=== PATIENT | male | born 1985 | race Caucasian/White ===

== ENCOUNTER 2018-07-04 17:10 | Emergency (ER) | payer OTHER ==
[2018-07-04] MEDS ORDERED: Ketorolac 60 MG/2 ML SDV IM ONE (18:02)
[2018-07-04] MEDS ORDERED: Acetaminophen/HYDROcodone 325-5 MG Tab PO ONE (18:02)
--- NOTE | 2018-07-04 18:08 | EDM.PDOC ---
ED HPI GENERAL MEDICAL PROBLEM - General Chief Complaint: Lower Extremity Injury/Pain Stated Complaint: LEFT TOE INJURY Time Seen by Provider: 07/04/18 17:48 Source of Information: Reports: Patient History Limitations: Reports: No Limitations - History of Present Illness INITIAL COMMENTS - FREE TEXT/NARRATIVE: Patient is a 32-year-old male presents ED complaining of left great toe pain. 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 Since then he's been developing increasing pain with swelling to the toe. He is able to weight- bear with a limp present. Estimates the table weighed approximately a couple 100 pounds. Left Feet Pain Score (Numeric/FACES): 6 - Related Data Allergies Allergy/AdvReac Type Severity Reaction Status Date / Time No Known Allergies Allergy Verified 07/04/18 17:41 Home Meds: Home Meds . [No Known Home Meds] 07/04/18 [History] Past Medical History - Past Health History Medical/Surgical History: Denies Medical/Surgical History Social & Family History - Tobacco Use Smoking Status *Q: Current Every Day Smoker Years of Tobacco use: 16 Packs/Tins Daily: 1 - Caffeine Use Caffeine Use: Reports: Coffee, Energy Drinks, Soda, Tea - Recreational Drug Use Recreational Drug Use: Yes Drug Use in Last 12 Months: Yes Recreational Drug Type: Reports: Marijuana/Hashish Recreational Drug Use Frequency: Weekly Review of Systems - Review of Systems Review Of Systems: ROS reveals no pertinent complaints other than HPI. ED EXAM, GENERAL - Physical Exam Exam: See Below Exam Limited By: No Limitations General Appearance: Alert, WD/WN, Mild Distress Ears: Hearing Grossly Normal Nose: Normal Inspection Throat/Mouth: Normal Voice, No Airway Compromise Neck: Normal Inspection, Supple Respiratory/Chest: No Respiratory Distress, No Accessory Muscle Use Cardiovascular: Normal Peripheral Pulses, Regular Rate, Rhythm Peripheral Pulses: 2+: Radial (R), Popliteal (L) Extremities: Other (Left great toe: Hematoma underneath the nail bed with a portion of the skin along the cuticle pulled away. With gentle pressure on the toenail there is increasing pain noted. It is slightly move with pressure. Proper anatomical position noted.) Neurological: Alert, Oriented, CN II-XII Intact, Normal Cognition, No Motor/ Sensory Deficits Psychiatric: Normal Affect, Normal Mood Skin Exam: Warm, Dry, Intact, Normal Color Course - Vital Signs Last Recorded V/S: Last Vital Signs Temp 98.2 F 07/04/18 17:33 Pulse 83 07/04/18 17:33 Resp 18 07/04/18 17:33 BP 152/87 H 07/04/18 17:33 Pulse Ox 99 07/04/18 17:33 - Orders/Labs/Meds Orders: Active Orders 24 hr Category Date Time Status Toes Great Toe Lt TA [CR] Stat Exams 07/04/18 18:03 Taken Meds: Medications Discontinued Medications Generic Name Dose Route Start Last Admin Trade Name Cyril PRN Reason Stop Dose Admin Hydrocodone Bitart/Acetaminophen 1 tab 07/04/18 18:02 07/04/18 18:20 Sherman 325-5 Mg PO 07/04/18 18:03 1 tab ONETIME ONE Administration Ketorolac Tromethamine 60 mg 07/04/18 18:02 07/04/18 18:21 Toradol IM 07/04/18 18:03 60 mg ONETIME ONE Administration - Re-Assessments/Exams Free Text/Narrative Re-Assessment/Exam: Ordered toradol 60 mg im plus norco 5-325mg po x1. Xray of the great toe ordered. 07/04/18 19:30 X-ray of the left great toe reviewed with Dr. Rodas with no acute fractures noted. Dressing applied per nursing staff. Patient discharged home with instructions as documented. Departure - Departure Time of Disposition: 19:31 Disposition: Home, Self-Care 01 Condition: Good Clinical Impression: Subungual hematoma, "Subungual hematoma, foot " Crush injury, toe Qualifiers: Encounter type: initial encounter Laterality: left Qualified Code(s): S97.102A - Crushing injury of unspecified left toe(s), initial encounter - Discharge Information Instructions: Subungual Hematoma, Contusion, [id number], Nail Bed Injury Referrals: PCP,None [Primary Care Provider] - Forms: ED Department Discharge, ED Return to Work/School Form Additional Instructions: No fracture noted on the x-rays of the left great toe. Apply ice to affected area 3 times a day, 30 minutes in duration, do not apply ice directly on the skin. Utilize Tylenol and ibuprofen in alternating fashion for pain. Refrain from any activities that cause worsening pain. Keep area clean and dry. Suggest no soaking of the left toe due to the wound to the base of the nail. Cleanse twice daily with soap and water, reapply Triple Antibiotic ointment. Return to ED if you develop any new or worsening symptoms. - My Orders Last 24 Hours: My Active Orders 07/04/18 18:03 Toes Great Toe Lt TA [CR] Stat - Assessment/Plan Last 24 Hours: My Active Orders 07/04/18 18:03 Toes Great Toe Lt TA [CR] Stat
--- NOTE | 2018-07-07 09:14 | CR ---
Left first toe: Three views of the left first toe were obtained. Comparison: No prior first toe exam. No fracture or other abnormality is appreciated. Impression: 1. No discrete bony abnormality is seen on left first toe study. Diagnostic code #1
== END 2018-07-04 19:50 | disposition home or self-care (01) ==
LOC: JD.ED 17:10
DX: S97.112A Crushing injury of left great toe, initial encounter (principal); F17.210 Nicotine dependence, cigarettes, uncomplicated; W20.8XXA Other cause of strike by thrown, projected or falling object, initial encounter
CPT/HCPCS: 73660; 96372; 99283; A9270; J1885

== ENCOUNTER 2025-05-07 11:09 | Inpatient (IN) | payer BC, OTHER ==
[2025-05-07 11:54] LABS: APPEARANCE,URINE CLEAR (Clear); GLUCOSE,URINE 3+ (Negative); OCCULT BLOOD,URINE 1+ (Negative)
[2025-05-07 11:55] LABS: BASOPHILS ABSOLUTE AUTO 0.1 K/mm3 (0.0-0.2); BASOPHILS PERCENT AUTO 1.1 % (0.0-1.0); EOSINOPHILS ABSOLUTE AUTO 0.0 K/mm3 (0.0-0.4); EOSINOPHILS PERCENT AUTO 0.0 % (0.0-6.0); IMMATURE GRAN ABSOLUTE AUTO 0.03 K/mm3 (0.00-0.05); IMMATURE GRAN PERCENT AUTO 0.3 % (0.0-0.4); LYMPHOCYTES ABSOLUTE AUTO 0.4 K/mm3 (1.0-4.8); LYMPHOCYTES PERCENT AUTO 4.4 % (24.0-44.0); MEAN PLATELET VOLUME 10.1 fl (9.4-12.4); MONOCYTES ABSOLUTE AUTO 0.6 K/mm3 (0.0-0.8); MONOCYTES PERCENT AUTO 6.1 % (0.0-8.0); NEUTROPHILS ABSOLUTE AUTO 8.3 K/mm3 (1.8-7.7); NEUTROPHILS PERCENT AUTO 88.1 % (41.0-71.0); NRBC ABSOLUTE 0.00 (0.00-0.02); NRBC PERCENT 0.0 % (0.0-0.2); PLATELET COUNT,PLT 301 K/mm3 (150-400); RED BLOOD CELL COUNT 4.66 M/mm3 (4.52-5.90); WHITE BLOOD CELL COUNT,WBC 9.38 K/mm3 (3.9-11.3)
[2025-05-07] MEDS: Sodium Chloride 0.9% 10 ML Syringe FLUSH PRN ×2 (12:01→12:02)
[2025-05-07] MEDS: Iopamidol 612 MG/ML 100 ML Bottle IVPUSH ONE (12:24)
[2025-05-07 12:33] LABS: A/G RATIO 0.9 (1-2); BILIRUBIN TOTAL 1.4 mg/dL (0.2-1.0); BLOOD UREA NITROGEN,BUN 12 mg/dL (7-18); CARBON DIOXIDE,CO2 14 mEq/L (21-32); CHLORIDE,CL 84 mEq/L (98-107); CREATININE 1.3 mg/dL (0.7-1.3); EST CRCL DRUG DOSING (CG) 78.77 mL/min; ESTIMATED GFR 72 mL/min (>60); PROTEIN TOTAL,TP 8.3 g/dl (6.4-8.2); SODIUM,NA 124 mEq/L (136-145)
[2025-05-07 12:45] LABS: GLUCOSE RANDOM 608 mg/dL (70-99)
[2025-05-07 12:50] LABS: POTASSIUM,K 4.0 mEq/L (3.5-5.1)
[2025-05-07 13:24] LABS: OSMOLALITY,SERUM 338 mosm/kg (280-300)
[2025-05-07 14:34] LABS: BLOOD UREA NITROGEN,BUN 10.0 mg/dL (7-18); CARBON DIOXIDE,CO2 20.0 mEq/L (21-32); CHLORIDE,CL 91.0 mEq/L (98-107); CREATININE 1.3 mg/dL (0.7-1.3); EST CRCL DRUG DOSING (CG) 78.77 mL/min; ESTIMATED GFR 72.0 mL/min (>60); GLUCOSE RANDOM 373.0 mg/dL (70-99); SODIUM,NA 131.0 mEq/L (136-145)
[2025-05-07 14:35] LABS: POTASSIUM,K 3.7 mEq/L (3.5-5.1)
[2025-05-07] MEDS: Sodium Chloride 0.45% with KCl 1,000 ML IV SCH (14:50)
[2025-05-07] MEDS: NS + KCl 20mEq/L 1,000 ML IV SCH (16:01)
[2025-05-07] MEDS ORDERED: LORazepam 2 MG/ML SDV IVPUSH PRN (16:02)
[2025-05-07] MEDS ORDERED: 50% Dextrose in Water 50 ML Syringe IVPUSH PRN (16:03)
[2025-05-07] MEDS ORDERED: Ondansetron 4 MG/2 ML SDV IV PRN (16:20)
[2025-05-07] MEDS ORDERED: Labetalol 100 MG/20 ML MDV IVPUSH PRN (16:31)
[2025-05-07] MEDS ORDERED: hydrALAZINE 20 MG/ML SDV IVPUSH PRN (16:31)
[2025-05-07 17:26] LABS: BLOOD UREA NITROGEN,BUN 11.0 mg/dL (7-18); CARBON DIOXIDE,CO2 20.0 mEq/L (21-32); CHLORIDE,CL 93.0 mEq/L (98-107); CREATININE 1.0 mg/dL (0.7-1.3); EST CRCL DRUG DOSING (CG) 102.4 mL/min; ESTIMATED GFR 98.0 mL/min (>60); GLUCOSE RANDOM 212.0 mg/dL (70-99); PHOSPHORUS 1.3 mg/dL (2.6-4.7); SODIUM,NA 132.0 mEq/L (136-145)
[2025-05-07] MEDS: Dextrose 5%-0.9% NaCl with KCl 1,000 ML IV PRN (17:30)
[2025-05-07 17:40] LABS: POTASSIUM,K 3.5 mEq/L (3.5-5.1)
[2025-05-07 17:42] LABS: PROTEIN TOTAL,TP 7.7 g/dl (6.4-8.2)
[2025-05-07 17:43] LABS: A/G RATIO 0.9 (1-2); ALANINE AMINOTRANSFERASE,ALT 136 U/L (16-63); BILIRUBIN INDIRECT 0.9 mg/dL (0.1-1.0); BILIRUBIN TOTAL 1.3 mg/dL (0.2-1.0)
[2025-05-07 17:44] LABS: BILIRUBIN DIRECT 0.40 mg/dl (0.0-0.2)
[2025-05-07] MEDS: Acetaminophen/HYDROcodone 325-5 MG Tab PO PRN (20:36)
[2025-05-07] MEDS: Sennosides/Docusate Sodium 50-8.6 MG Tab PO PRN (20:42)
[2025-05-07 20:55] LABS: BLOOD UREA NITROGEN,BUN 11.0 mg/dL (7-18); CARBON DIOXIDE,CO2 21.0 mEq/L (21-32); CHLORIDE,CL 97.0 mEq/L (98-107); CREATININE 1.1 mg/dL (0.7-1.3); EST CRCL DRUG DOSING (CG) 93.09 mL/min; ESTIMATED GFR 88.0 mL/min (>60); GLUCOSE RANDOM 165.0 mg/dL (70-99); SODIUM,NA 133.0 mEq/L (136-145)
[2025-05-07 20:57] LABS: POTASSIUM,K 3.4 mEq/L (3.5-5.1)
[2025-05-07 22:48] LABS: PHOSPHORUS 1.2 mg/dL (2.6-4.7)
[2025-05-08 00:35] LABS: BLOOD UREA NITROGEN,BUN 11.0 mg/dL (7-18); CARBON DIOXIDE,CO2 20.0 mEq/L (21-32); CHLORIDE,CL 95.0 mEq/L (98-107); CREATININE 0.8 mg/dL (0.7-1.3); EST CRCL DRUG DOSING (CG) 128.0 mL/min; ESTIMATED GFR 115.0 mL/min (>60); GLUCOSE RANDOM 237.0 mg/dL (70-99); POTASSIUM,K 3.6 mEq/L (3.5-5.1); SODIUM,NA 129.0 mEq/L (136-145)
[2025-05-08 05:23] LABS: BLOOD UREA NITROGEN,BUN 11.0 mg/dL (7-18); CARBON DIOXIDE,CO2 22.0 mEq/L (21-32); CHLORIDE,CL 99.0 mEq/L (98-107); CREATININE 0.9 mg/dL (0.7-1.3); EST CRCL DRUG DOSING (CG) 113.78 mL/min; ESTIMATED GFR 111.0 mL/min (>60); GLUCOSE RANDOM 219.0 mg/dL (70-99); PHOSPHORUS 1.0 mg/dL (2.6-4.7); POTASSIUM,K 3.2 mEq/L (3.5-5.1); SODIUM,NA 133.0 mEq/L (136-145)
[2025-05-08 05:27] LABS: FOLIC ACID 5.3 ng/mL (8.6-58.9)
[2025-05-08] MEDS: Potassium Chloride 20 MEQ Tab.ER PO ONE ×2 (06:01→22:35)
[2025-05-08] MEDS: Cyanocobalamin (Vitamin B12) 1,000 MCG Tab PO SCH (08:04)
[2025-05-08 08:54] LABS: BLOOD UREA NITROGEN,BUN 11.0 mg/dL (7-18); CARBON DIOXIDE,CO2 21.0 mEq/L (21-32); CHLORIDE,CL 99.0 mEq/L (98-107); CREATININE 0.8 mg/dL (0.7-1.3); EST CRCL DRUG DOSING (CG) 128.0 mL/min; ESTIMATED GFR 115.0 mL/min (>60); GLUCOSE RANDOM 151.0 mg/dL (70-99); POTASSIUM,K 3.4 mEq/L (3.5-5.1); SODIUM,NA 133.0 mEq/L (136-145)
[2025-05-08] MEDS ORDERED: Potassium Phosphates 30 MMOLE in Sodium Chloride 0.9% 500 ML IV SCH ×2 (09:00→18:00)
[2025-05-08] MEDS: Cholecalciferol (Vitamin D3) 5,000 UNIT Cap PO SCH (09:14)
[2025-05-08 11:18] LABS: PHOSPHORUS 1.6 mg/dL (2.6-4.7)
[2025-05-08] MEDS: Potassium Phosphates 30 MMOLE in Sodium Chloride 0.9% 500 ML IV SCH (12:14)
[2025-05-08 12:52] LABS: BLOOD UREA NITROGEN,BUN 9.0 mg/dL (7-18); CARBON DIOXIDE,CO2 21.0 mEq/L (21-32); CHLORIDE,CL 99.0 mEq/L (98-107); CREATININE 0.7 mg/dL (0.7-1.3); EST CRCL DRUG DOSING (CG) 146.29 mL/min; ESTIMATED GFR 120.0 mL/min (>60); GLUCOSE RANDOM 193.0 mg/dL (70-99); POTASSIUM,K 3.4 mEq/L (3.5-5.1); SODIUM,NA 131.0 mEq/L (136-145)
[2025-05-08] MEDS: Magnesium Sulfate 2 GM/50 mL 2 GM in Premix Bag 1 BAG IV ONE (17:09)
[2025-05-08 17:31] LABS: BLOOD UREA NITROGEN,BUN 7.0 mg/dL (7-18); CARBON DIOXIDE,CO2 22.0 mEq/L (21-32); CHLORIDE,CL 100.0 mEq/L (98-107); CREATININE 0.8 mg/dL (0.7-1.3); EST CRCL DRUG DOSING (CG) 128.0 mL/min; ESTIMATED GFR 115.0 mL/min (>60); GLUCOSE RANDOM 185.0 mg/dL (70-99); PHOSPHORUS 1.6 mg/dL (2.6-4.7); POTASSIUM,K 3.4 mEq/L (3.5-5.1); SODIUM,NA 134.0 mEq/L (136-145)
[2025-05-08] MEDS: Phosphorus #1 250 MG Tab PO ONE (18:06)
[2025-05-08] MEDS: D5 1/2 NS w/ 20 mEq/L KCl 1,000 ML IV PRN (20:44)
[2025-05-08 21:45] LABS: BLOOD UREA NITROGEN,BUN 6.0 mg/dL (7-18); CARBON DIOXIDE,CO2 22.0 mEq/L (21-32); CHLORIDE,CL 100.0 mEq/L (98-107); CREATININE 0.9 mg/dL (0.7-1.3); EST CRCL DRUG DOSING (CG) 113.78 mL/min; ESTIMATED GFR 111.0 mL/min (>60); GLUCOSE RANDOM 166.0 mg/dL (70-99); PHOSPHORUS 1.2 mg/dL (2.6-4.7); POTASSIUM,K 3.2 mEq/L (3.5-5.1); SODIUM,NA 132.0 mEq/L (136-145)
[2025-05-09 01:16] LABS: BLOOD UREA NITROGEN,BUN 5.0 mg/dL (7-18); CARBON DIOXIDE,CO2 23.0 mEq/L (21-32); CHLORIDE,CL 101.0 mEq/L (98-107); CREATININE 0.7 mg/dL (0.7-1.3); EST CRCL DRUG DOSING (CG) 146.29 mL/min; ESTIMATED GFR 120.0 mL/min (>60); GLUCOSE RANDOM 186.0 mg/dL (70-99); PHOSPHORUS 1.4 mg/dL (2.6-4.7); POTASSIUM,K 3.1 mEq/L (3.5-5.1); SODIUM,NA 133.0 mEq/L (136-145)
[2025-05-09] MEDS: Potassium Chloride 20 MEQ Tab.ER PO ONE (01:52)
[2025-05-09 04:56] LABS: BLOOD UREA NITROGEN,BUN 5.0 mg/dL (7-18); CARBON DIOXIDE,CO2 23.0 mEq/L (21-32); CHLORIDE,CL 102.0 mEq/L (98-107); CREATININE 0.8 mg/dL (0.7-1.3); EST CRCL DRUG DOSING (CG) 128.0 mL/min; ESTIMATED GFR 115.0 mL/min (>60); GLUCOSE RANDOM 194.0 mg/dL (70-99); PHOSPHORUS 0.9 mg/dL (2.6-4.7); POTASSIUM,K 3.5 mEq/L (3.5-5.1); SODIUM,NA 133.0 mEq/L (136-145)
[2025-05-09] MEDS: Insulin Glargine,Human Rec. Analog 100 Units/ML 3 ML Pen SUBCUT SCH (08:13)
[2025-05-09] MEDS: Insulin Lispro 100 Unit/ML 3 ML KwikPen SUBCUT SCH (08:13)
[2025-05-09 09:58] LABS: BLOOD UREA NITROGEN,BUN 5.0 mg/dL (7-18); CARBON DIOXIDE,CO2 20.0 mEq/L (21-32); CHLORIDE,CL 102.0 mEq/L (98-107); CREATININE 0.7 mg/dL (0.7-1.3); EST CRCL DRUG DOSING (CG) 146.29 mL/min; ESTIMATED GFR 120.0 mL/min (>60); GLUCOSE RANDOM 178.0 mg/dL (70-99); PHOSPHORUS 1.7 mg/dL (2.6-4.7); POTASSIUM,K 3.5 mEq/L (3.5-5.1); SODIUM,NA 135.0 mEq/L (136-145)
[2025-05-09] MEDS: Potassium Phosphates 30 MMOLE in Sodium Chloride 0.9% 500 ML IV SCH (15:44)
[2025-05-10 05:05] LABS: A/G RATIO 0.7 (1-2); ALANINE AMINOTRANSFERASE,ALT 78.0 U/L (16-63); ASPARTATE AMNIOTRANSFERASE,AST 49.0 U/L (15-37); BILIRUBIN TOTAL 0.9 mg/dL (0.2-1.0); BLOOD UREA NITROGEN,BUN 6.0 mg/dL (7-18); CARBON DIOXIDE,CO2 22.0 mEq/L (21-32); CHLORIDE,CL 101.0 mEq/L (98-107); CREATININE 0.7 mg/dL (0.7-1.3); EST CRCL DRUG DOSING (CG) 146.29 mL/min; ESTIMATED GFR 120.0 mL/min (>60); GLUCOSE RANDOM 144.0 mg/dL (70-99); PHOSPHORUS 1.7 mg/dL (2.6-4.7); POTASSIUM,K 3.2 mEq/L (3.5-5.1); PROTEIN TOTAL,TP 6.0 g/dl (6.4-8.2); SODIUM,NA 134.0 mEq/L (136-145)
[2025-05-10] MEDS: Potassium Chloride 20 MEQ Tab.ER PO ONE (08:32)
[2025-05-10 17:14] LABS: CHOLESTEROL HDL 13 mg/dL (40-59); CHOLESTEROL LDL DIRECT 75 mg/dL (<100); CHOLESTEROL TOTAL 153 mg/dL (<200)
[2025-05-10] MEDS: Phosphorus #1 250 MG Tab PO SCH (17:35)
[2025-05-11] MEDS ORDERED: Insulin Glargine,Human Rec. Analog 100 Units/ML 3 ML Pen SUBCUT SCH
[2025-05-11 04:45] LABS: A/G RATIO 0.6 (1-2); ALANINE AMINOTRANSFERASE,ALT 73.0 U/L (16-63); ASPARTATE AMNIOTRANSFERASE,AST 39.0 U/L (15-37); BILIRUBIN TOTAL 0.7 mg/dL (0.2-1.0); BLOOD UREA NITROGEN,BUN 9.0 mg/dL (7-18); CARBON DIOXIDE,CO2 24.0 mEq/L (21-32); CHLORIDE,CL 102.0 mEq/L (98-107); CREATININE 0.7 mg/dL (0.7-1.3); EST CRCL DRUG DOSING (CG) 146.29 mL/min; ESTIMATED GFR 120.0 mL/min (>60); GLUCOSE RANDOM 108.0 mg/dL (70-99); POTASSIUM,K 3.3 mEq/L (3.5-5.1); PROTEIN TOTAL,TP 6.6 g/dl (6.4-8.2); SODIUM,NA 138.0 mEq/L (136-145)
[2025-05-11] MEDS: Potassium Chloride 20 MEQ Tab.ER PO ONE (08:22)
[2025-05-11] MEDS: Ondansetron 4 MG Tab.DIS PO PRN (08:28)
[2025-05-11] MEDS ORDERED: Sennosides/Docusate Sodium 50-8.6 MG Tab PO ONE (08:48)
== END 2025-05-11 13:04 | disposition home or self-care (01) | DRG 638 ==
LOC: JD.ED 11:09 → JD.ICU 13:26 → INTOOBSV 13:27 → JD.ICU 13:27 → UNDOADMOB 13:27 → INTOOBSV 05-10 13:24 → OBSVTOIN 05-10 13:24 → JD.MS 05-10 15:44 → JD.ICU 05-10 15:44 → JD.MS 05-10 15:44 → UNDODISIN 05-11 13:04
PROVIDERS: ADMIT Student in an Organized Health Care Education/Training Program; ATTEND Student in an Organized Health Care Education/Training Program
DX: E11.10 Type 2 diabetes mellitus with ketoacidosis without coma (principal); F10.239 Alcohol dependence with withdrawal, unspecified; E86.0 Dehydration; K21.9 Gastro-esophageal reflux disease without esophagitis; F41.9 Anxiety disorder, unspecified; E66.9 Obesity, unspecified; K29.80 Duodenitis without bleeding; K76.0 Fatty (change of) liver, not elsewhere classified; G47.00 Insomnia, unspecified; E83.39 Other disorders of phosphorus metabolism; E55.9 Vitamin D deficiency, unspecified; E53.8 Deficiency of other specified B group vitamins; Z79.52 Long term (current) use of systemic steroids; Z72.0 Tobacco use; Z98.890 Other specified postprocedural states; Z86.16 Personal history of COVID-19; Z68.34 Body mass index [BMI] 34.0-34.9, adult
CPT/HCPCS: 36415; 74177; 74177-26; 80048; 80053; 80061; 80076; 80307; 81001; 82010; 82306; 82607; 82746; 82947; 83036; 83735; 83930; 84100; 84132; 84425; 85025; 93005; 93010; 96360; 99285; 99285-25; A9270-GY; J1650; J1815-GY; J2270; J3475; J3480; J3490; J7030; J7040; J7050; Q9967